=== PATIENT | female | born 1950 | race Caucasian/White ===

== ENCOUNTER 2023-09-06 12:14 | Day surgery (SDC) | payer MEDICARE ==
[2023-08-31 10:39] LABS: BASOPHILS # (AUTO) 0.1 X10'3 (0-0.2); BASOPHILS % (AUTO) 0.7 % (0-1); EOSINOPHILS # (AUTO) 0.2 X10'3 (0-0.9); EOSINOPHILS % (AUTO) 1.4 % (0-6); LYMPHOCYTES # (AUTO) 1.9 X10'3 (1.1-4.8); LYMPHOCYTES % (AUTO) 16.1 % (21-51); MEAN CORPUSCULAR VOLUME 94.1 FL (78-98); MEAN PLATELET VOLUME 7.9 FL (7.4-10.4); MONOCYTES % (AUTO) 8.5 % (2-12); NEUTROPHILS # (AUTO) 8.8 X10'3 (1.8-7.7); NEUTROPHILS % (AUTO) 73.3 % (42-75); PRE OP HEMATOCRIT 43.5 % (35.0-45.0); PRE OP HEMOGLOBIN 14.8 g/dL (12.0-16.0); PRE OP PLATELET COUNT 379 X10'3 (140-440); RED BLOOD COUNT 4.63 X10'6 (4.20-5.60); RED CELL DISTRIBUTION WIDTH 13.4 % (11.5-14.5)
[2023-08-31 10:55] LABS: ALBUMIN 4.2 G/DL (3.4-5.0); ALKALINE PHOSPHATASE 83 IU/L (46-116); BLOOD UREA NITROGEN 9 MG/DL (7-18); BUN/CREATININE RATIO 11.1 (10.0-20.0); CALCIUM 10.3 MG/DL (8.5-10.1); CHLORIDE 99 MMOL/L (99-107); CREATININE 0.81 MG/DL (0.40-0.90); PRE OP ALT 25 U/L (30-65); PRE OP ANION GAP 9 (8-16); PRE OP AST 23 U/L (10-37); PRE OP BILIRUB, TOTAL 0.3 MG/DL (0.0-1.0); PRE OP GLUCOSE 102 MG/DL (70-104); PRE OP POTASSIUM 3.2 MMOL/L (3.4-5.1); PRE OP SODIUM 138 MMOL/L (135-145); TOTAL CARBON DIOXIDE 30.4 MMOL/L (24-32); TOTAL PROTEIN 8.6 G/DL (6.4-8.2); eGFR 70 ML/MIN
[2023-08-31 12:18] LABS: BILIRUBIN,URINE NEGATIVE (Neg); CLARITY,URINE SLIGHTLY CLOUDY (Clear); COLOR,URINE YELLOW (Yellow); GLUCOSE, URINE NEGATIVE (Neg); KETONES,URINE NEGATIVE (Neg); LEUKOCYTE ESTERASE ,URINE NEGATIVE (Neg); NITRITES, URINE NEGATIVE (Neg); OCCULT BLOOD,URINE NEGATIVE (Neg); PH,URINE 5.5 (4.8-8.0); PROTEIN,URINE NEGATIVE (Neg); UROBILINOGEN,URINE 0.2 E.U/dL (0.2-1.0)
[2023-08-31 12:21] LABS: UA COLLECTION TYPE NON-SPECIFIED
[2023-08-31 12:33] LABS: HYALINE CASTS 0-3 /LPF (NEGATIVE)
[2023-08-31 12:34] LABS: BACTERIA,URINE FEW /HPF (Neg)
[2023-08-31 12:35] LABS: RBC,URINE 0-2 /HPF (0-2); WBC,URINE 0-4 /HPF (0-4)
[2023-08-31 12:37] LABS: SQUAMOUS EPITHELIAL CELL,UR MANY /LPF (FEW); TRANSITIONAL EPI CELLS,URINE FEW /HPF
[~2023-09-06] VITALS: Ht 162.6 cm; Wt 82.0 kg
[2023-09-06] VITALS (20 sets, daily range): BP systolic 122–184; BP diastolic 66–98; PULSE 72–88; RESP 13–19; TEMP 97.6–99; O2SAT 94–98
[~2023-09-06 12:14] MED LIST: ASCO-283 PO; LATA2.5D14 EACHEYE; LISI20TA28 PO; TUDCA PO; UBID50TA3 PO; VITAMIN D PO; [UNRECOGNIZED DRUG - OTHER] PO; ceFOXitin 2GM-NS 100mL ADDvant 100 ML IV ONE; famotidine 20mg tablet PO ONE
[2023-09-06 13:26] LABS: ISTAT CREATININE 0.7 mg/dL (0.6-1.1); ISTAT IONIZED CALCIUM 1.25 mmol/L (1.03-1.32); ISTAT K 3.8 mmol/L (3.5-5.1); POC BUN/CREATININE RATIO 11.4 (6.6-38.0)
[2023-09-06] MEDS ORDERED: labetalol 20mg/4ml (5mg/ml) syringe IV PRN ×2 (13:30→16:25)
[2023-09-06] MEDS ORDERED: ringers solution, lacted 1,000 ML IV SCH ×2 (13:30→16:25)
[2023-09-06] MEDS ORDERED: fentaNYL/PF 50MCG/1 ML 2ML syringe IV PRN ×4 (13:30→16:25)
[2023-09-06] MEDS ORDERED: morphine 4 MG/ML inj SYRINge IV PRN ×2 (13:30→16:25)
[2023-09-06] MEDS ORDERED: morphine 2 MG/ML inj. syringe IV PRN ×2 (13:30→16:25)
[2023-09-06] MEDS ORDERED: hydrALAZINE 20mg/ml inj. IV PRN ×2 (13:30→16:25)
[2023-09-06] MEDS ORDERED: ondansetron/PF 4mg/2ml inj IV PRN ×3 (13:30→20:35)
[2023-09-06] MEDS: ringers solution, lacted 1,000 ML IV SCH ×2 (14:16→22:20)
[2023-09-06] MEDS ORDERED: INDOCYANINE GREEN 25 MG/10 ML VIAL IV ONE (17:40)
[2023-09-06] MEDS ORDERED: BUPIVAcaine 2.5mg/ml inj 50ml vial (contains preservative) ONE (17:40)
[2023-09-06] MEDS ORDERED: LIDOcaine 2% (20mg/ml) 5ml vial ONE (18:09)
[2023-09-06] MEDS ORDERED: ondansetron/PF 4mg/2ml inj ONE (18:09)
[2023-09-06] MEDS ORDERED: rocuronium 10mg/ml inj IV ONE (18:09)
[2023-09-06] MEDS ORDERED: propofol inj 20 ML IV ONE (18:09)
[2023-09-06] MEDS ORDERED: midazolam 1 mg/ML 2ml injection ONE (18:13)
[2023-09-06] MEDS ORDERED: fentaNYL/PF 50MCG/1 ML 2ML syringe ONE ×2 (18:13→19:33)
[2023-09-06] MEDS ORDERED: labetalol 20mg/4ml (5mg/ml) syringe IV ONE (18:34)
[2023-09-06] MEDS ORDERED: BUPIVAcaine/PF 2.5 mg/ml (0.25%) 30ml vial IJ ONE (18:34)
[2023-09-06] MEDS ORDERED: hydrALAZINE 20mg/ml inj. IV ONE (18:41)
[2023-09-06] MEDS ORDERED: sugammadex 200mg/2ml injection IV ONE (18:47)
[2023-09-06] MEDS ORDERED: naloxone 0.4 mg/ml inj IV PRN (20:35)
[2023-09-06] MEDS ORDERED: UBID400C8 PO (20:59)
[2023-09-06] MEDS ORDERED: latanoprost 0.005% 2.5ml ophthalmic drops EACHEYE SCH (21:00)
[2023-09-06] MEDS: HYDROcodone/acetaminophen 10/325mg tab PO PRN (23:18)
[2023-09-07] VITALS (7 sets, daily range): BP systolic 106–130; BP diastolic 47–65; PULSE 80–83; RESP 15–18; TEMP 97.5–97.8; O2SAT 93–99
[2023-09-07] MEDS: HYDROcodone/acetaminophen 10/325mg tab PO PRN ×2 (04:24→09:30)
[2023-09-07] MEDS: ringers solution, lacted 1,000 ML IV SCH ×3 (05:33→13:15)
[2023-09-07 05:56] LABS: BASOPHILS # (AUTO) 0.1 X10'3 (0-0.2); BASOPHILS % (AUTO) 1.1 % (0-1); EOSINOPHILS % (AUTO) 0 % (0-6); HEMATOCRIT 37.9 % (35.0-45.0); HEMOGLOBIN 12.8 g/dl (12.0-16.0); LYMPHOCYTES # (AUTO) 0.5 X10'3 (1.1-4.8); LYMPHOCYTES % (AUTO) 3.5 % (21-51); MEAN CORPUSCULAR HEMOGLOBIN 31.8 PG (27.0-31.0); MEAN CORPUSCULAR HGB CONC 33.8 g/dL (33.0-36.5); MEAN CORPUSCULAR VOLUME 93.8 FL (78-98); MEAN PLATELET VOLUME 7.4 FL (7.4-10.4); MONOCYTES # (AUTO) 0.7 X10'3 (0-0.9); MONOCYTES % (AUTO) 5.1 % (2-12); NEUTROPHILS # (AUTO) 12.1 X10'3 (1.8-7.7); NEUTROPHILS % (AUTO) 90.3 % (42-75); PLATELET COUNT 325 X10'3 (140-440); RED BLOOD COUNT 4.04 X10'6 (4.20-5.60); RED CELL DISTRIBUTION WIDTH 13.3 % (11.5-14.5); WHITE BLOOD COUNT 13.4 X10'3 (4.5-11.0)
[2023-09-07 06:20] LABS: ALANINE AMINOTRANSFERASE 52 U/L (12-78); ALBUMIN 3.2 G/DL (3.4-5.0); ALBUMIN/GLOBULIN RATIO 0.8 (1.1-1.5); ALKALINE PHOSPHATASE 66 IU/L (46-116); ANION GAP 11 (8-16); ASPARTATE AMINO TRANSFERASE 53 U/L (10-37); BILIRUBIN,TOTAL 0.4 MG/DL (0.1-1.0); BLOOD UREA NITROGEN 11 MG/DL (7-18); BUN/CREATININE RATIO 12.4 (10.0-20.0); CALCIUM 9.2 MG/DL (8.5-10.1); CHLORIDE 101 MMOL/L (99-107); CREATININE 0.89 MG/DL (0.40-0.90); GLUCOSE 159 MG/DL (70-104); POTASSIUM 3.7 MMOL/L (3.5-5.1); SODIUM 137 MMOL/L (135-145); TOTAL CARBON DIOXIDE 25.1 MMOL/L (24-32); TOTAL PROTEIN 7.1 G/DL (6.4-8.2); eCRCL 51 ML/MIN; eGFR 63 ML/MIN
[2023-09-07] MEDS ORDERED: ascorbic acid 500mg tablet PO SCH (08:00)
[2023-09-07] MEDS ORDERED: TUDCA PO SCH (08:00)
[2023-09-07] MEDS ORDERED: K2 PO SCH (08:00)
[2023-09-07] MEDS ORDERED: UBIDECARENONE 400 MG PO SCH (08:00)
[2023-09-07] MEDS ORDERED: VITAMIN D3 PO SCH (08:00)
[2023-09-07] MEDS ORDERED: lisinopril 20mg tablet PO SCH (08:00)
== END 2023-09-07 15:00 | disposition home or self-care (01) ==
LOC: PAS 12:14 → ORTHO 4S 20:45 → UNDOADMIN 20:45 → ORTHO 4S 20:45 → PAS 09-07 15:00
PROVIDERS: ATTEND Surgery
DX: K80.10 Calculus of gallbladder with chronic cholecystitis without obstruction (principal); I10 Essential (primary) hypertension; E66.9 Obesity, unspecified; Z68.31 Body mass index [BMI] 31.0-31.9, adult; H40.9 Unspecified glaucoma; F12.90 Cannabis use, unspecified, uncomplicated; Z87.891 Personal history of nicotine dependence; Z86.16 Personal history of COVID-19; Z85.42 Personal history of malignant neoplasm of other parts of uterus; Z79.899 Other long term (current) drug therapy; Z90.710 Acquired absence of both cervix and uterus; Z86.19 Personal history of other infectious and parasitic diseases; Z82.5 Family history of asthma and other chronic lower respiratory diseases; Z81.8 Family history of other mental and behavioral disorders
CPT/HCPCS: 36415; 47562; 80053; 81001; 85025; 87081; J0360; J0694; J2250; J2270; J2405; J2704; J3010; J3490; J7030; J7120; Z7506; Z7508; Z7512; 80047; A4215; A4615; A4618; A6449; A7000; G0378